=== PATIENT | male | born 1960 | race Caucasian/White ===

== ENCOUNTER 2018-09-30 11:39 | Emergency (ER) | payer OTHER ==
[~2018-09-30] VITALS: Ht 182.9 cm; Wt 101.7 kg
[2018-09-30] MEDS ORDERED: MEDROLDOSEPACK PO (13:01)
[2018-09-30] MEDS ORDERED: NORCO 5-325 TA1 EACH PO (13:01)
[2018-09-30 13:10] VITALS: BP 188/86
== END 2018-09-30 13:11 | disposition home or self-care (01) ==
LOC: M.ERS 11:39
DX: M54.41 Lumbago with sciatica, right side (principal); J45.909 Unspecified asthma, uncomplicated; I10 Essential (primary) hypertension; Z88.0 Allergy status to penicillin